=== PATIENT | male | born 1965 | race Caucasian/White ===

== ENCOUNTER 2019-10-01 14:03 | Outpatient (RCR) | payer SELFPAY ==
--- NOTE | 2019-09-10 10:09 | XR_ITS ---
WS: [id number] LEFT FOOT: 3 VIEW(S) TECHNIQUE: PA, oblique and lateral. HISTORY: DIABETIC WITH FOOT ULCER, LEFT FOOT PAIN COMPARISON: None available. No acute fracture or dislocation. Normal tarsal/metatarsal alignment. Large soft tissue ulceration lateral to the fifth metatarsal head measures 3.7 x 1.5 cm. No osteomyel itis is identified. Mild narrowing of the first metatarsophalangeal joint. Enthesopathy at the Achill es tendon. XR/XR foot LT min 3V* [id number] IMPRESSION: 1. Soft tissue ulcer lateral to the fifth metatarsal head measures 3.7 x 1.5 c m. 2. No osteomyelitis at this time.
== END 2019-10-01 23:59 | disposition home or self-care (01) ==
LOC: WOUND 14:03
PROVIDERS: Visit Provider Surgery
DX: E11.621 Type 2 diabetes mellitus with foot ulcer (principal); L97.522 Non-pressure chronic ulcer of other part of left foot with fat layer exposed; I96 Gangrene, not elsewhere classified; M79.672 Pain in left foot
CPT/HCPCS: 11042; 73630; G0463; L3260

== ENCOUNTER 2019-10-29 09:56 | Outpatient (RCR) | payer SELFPAY | END 2019-10-30 23:59 | disposition home or self-care (01) | LOC: WOUND 09:56 | PROVIDERS: Visit Provider Surgery | DX: E11.621 Type 2 diabetes mellitus with foot ulcer (principal); L97.522 Non-pressure chronic ulcer of other part of left foot with fat layer exposed | CPT/HCPCS: 11042 ==

== ENCOUNTER 2019-11-23 11:29 | Emergency (ER) | payer SELFPAY ==
[2019-11-23 11:33] VITALS: BP 153/83; PULSE 94; RESP 15; TEMP 36.9; O2SAT 97; BMI 39.5
--- NOTE | 2019-11-23 11:37 | XR_ITS ---
WS: [id number] Left foot, 3 views, today Clinical Data: PAIN Comparison: Left foot, 09/10/2019. Findings: There is soft tissue swelling over the head of the left fifth metatarsal basically unchanged. No bone erosion or destruction is seen. There is no periarticular demineralization. The bones of the phalang es appear to be normal. The tarsal bones and metatarsals are unremarkable. There is a large Achilles spur. XR/XR foot LT min 3V* [id number] Impression: 1. Soft tissue swelling lateral to the head of the left fifth metatarsal unchan ged. 2. No osteomyelitis seen.
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
[2019-11-23 12:02] VITALS: O2SAT 97
[2019-11-23 12:16] LABS: Basophils % 0.3 %; Eosinophils % 0.2 %; Hematocrit 40.4 % (42.0-52.0); Hemoglobin 14.1 g/dL (11.7-16.6); Lymphocytes # 1.9 10^3/uL (0.8-4.8); Lymphocytes % 12.7 %; Mean Corpuscular HGB Conc 34.9 g/dL (30.0-36.0); Mean Corpuscular Hemoglobin 29.9 pg (28.0-34.0); Mean Corpuscular Volume 85.6 fL (80-94); Mean Platelet Volume 9.9 fL (7.4-10.4); Monocytes # 1.2 10^3/uL (0.2-0.9); Monocytes % 7.9 %; Neutrophils # 11.7 10^3/uL (1.8-7.7); Neutrophils % 78.4 %; Nucleated Red Blood Cells % 0 %; Platelet Count 206 10^3/cmm (130-400); Red Blood Count 4.72 10^6/uL (4.1-5.3); Red Cell Distribution Width 13.1 % (12.1-15.1); White Blood Count 14.9 10^3/uL (4.0-10.0)
[2019-11-23 12:35] LABS: Alanine Aminotransferase 28 U/L (0-41); Alkaline Phosphatase 88 IU/L (40-130); Anion Gap 19.1 (5-19); Aspartate Amino Transferase 24 U/L (0-40); Blood Urea Nitrogen 11 mg/dL (6-20); Calcium 9.9 mg/dL (8.5-10.5); Carbon Dioxide 23 mmol/L (22-29); Chloride 96 mmol/L (98-107); Globulin 3.4 g/dL (1.3-4.6); Glomerular Filtration Rate 118.4 mL/min (90-130); Glucose 309 mg/dL (65-115); Osmolality Calculated 286 mOsm/kg (285-295); Potassium 4.1 mmol/L (3.5-5.1); Sodium 134 mmol/L (136-145); Total Bilirubin 1.3 mg/dL (0.15-1.2); Total Protein 7.4 g/dL (6.6-8.7)
[2019-11-23] MEDS: clindamycin 150 mg Capsule 300 MG PO (12:55)
[2019-11-23] MEDS: sulfamethoxazole-trimeth DS 160-800 mg Tablet 2 TAB PO (12:55)
[2019-11-23 12:59] VITALS: BP 148/90; PULSE 68; RESP 17; O2SAT 97
== END 2019-11-23 12:59 | disposition home or self-care (01) ==
LOC: ER 12:57
PROVIDERS: Emergency Provider Emergency Medicine
DX: E11.621 Type 2 diabetes mellitus with foot ulcer (principal); L97.529 Non-pressure chronic ulcer of other part of left foot with unspecified severity; Z87.891 Personal history of nicotine dependence
CPT/HCPCS: 11042; 12345; 36415; 73630; 80053; 85025; 87040; 99282; 99283

== ENCOUNTER 2019-11-26 13:44 | Outpatient (RCR) | payer SELFPAY | END 2019-11-30 23:59 | disposition home or self-care (01) | LOC: WOUND 13:44 | PROVIDERS: Visit Provider Surgery | DX: E11.621 Type 2 diabetes mellitus with foot ulcer (principal); L97.522 Non-pressure chronic ulcer of other part of left foot with fat layer exposed | CPT/HCPCS: 11042; L4387 ==

== ENCOUNTER 2019-12-24 14:24 | Outpatient (RCR) | payer SELFPAY | END 2019-12-30 23:59 | disposition home or self-care (01) | LOC: WOUND 14:24 | PROVIDERS: Visit Provider Surgery | DX: E11.621 Type 2 diabetes mellitus with foot ulcer (principal); L97.522 Non-pressure chronic ulcer of other part of left foot with fat layer exposed | CPT/HCPCS: 11042; L4387 ==

== ENCOUNTER 2019-12-31 14:42 | Outpatient (CLI) | payer SELFPAY | END 2019-12-31 14:43 | disposition home or self-care (01) | LOC: WOUND 01-03 13:40 | PROVIDERS: Visit Provider Surgery | DX: E11.621 Type 2 diabetes mellitus with foot ulcer (principal); L97.522 Non-pressure chronic ulcer of other part of left foot with fat layer exposed | CPT/HCPCS: 11042 ==

== ENCOUNTER 2020-01-07 14:56 | Outpatient (CLI) | payer SELFPAY | END 2020-01-07 14:57 | disposition home or self-care (01) | LOC: WOUND 14:57 | PROVIDERS: Visit Provider Surgery | DX: E11.621 Type 2 diabetes mellitus with foot ulcer (principal); L97.522 Non-pressure chronic ulcer of other part of left foot with fat layer exposed | CPT/HCPCS: 97597 ==

== ENCOUNTER 2020-01-14 14:07 | Outpatient (CLI) | payer SELFPAY | END 2020-01-14 14:08 | disposition home or self-care (01) | LOC: WOUND 14:07 | PROVIDERS: Visit Provider Surgery | DX: E11.621 Type 2 diabetes mellitus with foot ulcer (principal); L97.822 Non-pressure chronic ulcer of other part of left lower leg with fat layer exposed | CPT/HCPCS: 11042 ==

== ENCOUNTER 2020-01-21 15:25 | Outpatient (CLI) | payer SELFPAY | END 2020-01-21 15:26 | disposition home or self-care (01) | LOC: WOUND 15:26 | PROVIDERS: Visit Provider Surgery | DX: E11.621 Type 2 diabetes mellitus with foot ulcer (principal); L97.522 Non-pressure chronic ulcer of other part of left foot with fat layer exposed | CPT/HCPCS: 11042; L3260; L4387 ==

== ENCOUNTER 2020-01-28 13:24 | Outpatient (CLI) | payer SELFPAY | END 2020-01-28 13:25 | disposition home or self-care (01) | LOC: WOUND 13:25 | PROVIDERS: Visit Provider Surgery | DX: E11.621 Type 2 diabetes mellitus with foot ulcer (principal); L97.522 Non-pressure chronic ulcer of other part of left foot with fat layer exposed | CPT/HCPCS: 11042 ==

== ENCOUNTER 2020-02-03 14:44 | Outpatient (CLI) | payer SELFPAY | END 2020-02-03 14:45 | disposition home or self-care (01) | LOC: WOUND 14:45 | PROVIDERS: Visit Provider Nurse Practitioner Family | DX: E11.621 Type 2 diabetes mellitus with foot ulcer (principal); L97.522 Non-pressure chronic ulcer of other part of left foot with fat layer exposed | CPT/HCPCS: 11042 ==

== ENCOUNTER 2020-02-11 13:32 | Outpatient (CLI) | payer SELFPAY | END 2020-02-11 13:33 | disposition home or self-care (01) | LOC: WOUND 13:33 | PROVIDERS: Visit Provider Surgery | DX: E11.621 Type 2 diabetes mellitus with foot ulcer (principal); L97.522 Non-pressure chronic ulcer of other part of left foot with fat layer exposed | CPT/HCPCS: 11042 ==

== ENCOUNTER 2020-02-14 09:49 | Outpatient (CLI) | payer SELFPAY | END 2020-02-14 09:50 | disposition home or self-care (01) | LOC: WOUND 09:50 | PROVIDERS: Visit Provider Nurse Practitioner Family | DX: E11.621 Type 2 diabetes mellitus with foot ulcer (principal); L97.522 Non-pressure chronic ulcer of other part of left foot with fat layer exposed | CPT/HCPCS: 11042 ==

== ENCOUNTER 2020-02-18 13:50 | Outpatient (CLI) | payer SELFPAY | END 2020-02-18 13:51 | disposition home or self-care (01) | LOC: WOUND 13:52 | PROVIDERS: Visit Provider Surgery | DX: E11.621 Type 2 diabetes mellitus with foot ulcer (principal); L97.522 Non-pressure chronic ulcer of other part of left foot with fat layer exposed | CPT/HCPCS: 11042 ==

== ENCOUNTER 2020-02-21 09:05 | Outpatient (CLI) | payer SELFPAY | END 2020-02-21 09:06 | disposition home or self-care (01) | LOC: WOUND 09:07 | PROVIDERS: Visit Provider Nurse Practitioner Family | DX: E11.621 Type 2 diabetes mellitus with foot ulcer (principal); L97.522 Non-pressure chronic ulcer of other part of left foot with fat layer exposed; L97.512 Non-pressure chronic ulcer of other part of right foot with fat layer exposed | CPT/HCPCS: 11042 ==

== ENCOUNTER 2020-02-24 14:56 | Outpatient (CLI) | payer SELFPAY | END 2020-02-24 14:57 | disposition home or self-care (01) | LOC: WOUND 15:06 | PROVIDERS: Visit Provider Nurse Practitioner Family | DX: Z51.89 Encounter for other specified aftercare (principal) | CPT/HCPCS: G0463 ==

== ENCOUNTER 2020-03-20 13:28 | Outpatient (CLI) | payer SELFPAY | END 2020-03-20 13:29 | disposition home or self-care (01) | LOC: WOUND 13:29 | PROVIDERS: Visit Provider Nurse Practitioner Family | DX: E11.621 Type 2 diabetes mellitus with foot ulcer (principal); L97.512 Non-pressure chronic ulcer of other part of right foot with fat layer exposed | CPT/HCPCS: 11042 ==

== ENCOUNTER 2020-03-27 13:17 | Outpatient (CLI) | payer SELFPAY | END 2020-03-27 13:18 | disposition home or self-care (01) | LOC: WOUND 13:21 | PROVIDERS: Visit Provider Nurse Practitioner Family | DX: E11.621 Type 2 diabetes mellitus with foot ulcer (principal); L97.512 Non-pressure chronic ulcer of other part of right foot with fat layer exposed | CPT/HCPCS: 11042; L3260 ==

== ENCOUNTER 2020-04-17 13:04 | Outpatient (CLI) | payer SELFPAY | END 2020-04-17 13:05 | disposition home or self-care (01) | LOC: WOUND 13:04 | PROVIDERS: Visit Provider Emergency Medicine | DX: Z09 Encounter for follow-up examination after completed treatment for conditions other than malignant neoplasm (principal) | CPT/HCPCS: 99212 ==

== ENCOUNTER 2021-01-04 13:42 | Emergency (ER) | payer SELFPAY ==
[2021-01-04 13:48] VITALS: BP 179/78; PULSE 87; RESP 24; TEMP 36.7; O2SAT 98; BMI 38.2
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
--- NOTE | 2021-01-04 14:23 | XR_ITS ---
WS: [id number] Right ankle, 3 views, 01/04/2021 Clinical Data: injury/swelling Comparison: None. Findings: No fractures or dislocations are seen. The ankle mortise is normal. The talus and calcaneus are unrem arkable. There is soft tissue swelling over the lateral malleolus. XR/XR ankle RT min 3V* [id number] Impression: 1. Negative for right ankle fracture. 2. Soft tissue swelling over lateral malleolus.
--- NOTE | 2021-01-04 14:23 | XR_ITS ---
WS: [id number] Right foot, 3 views, 01/04/2021 Clinical Data: injury Comparison: None. Findings: No fractures or dislocations are seen. No bone destruction or erosion is noted. The joint spaces and soft tissues are normal. There is a plantar spur and an Achilles spur. XR/XR foot RT min 3V* [id number] Impression: Negative right foot.
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
[2021-01-04 15:06] LABS: Basophils % 0.4 %; Eosinophils # 0.1 10^3/uL (0.0-0.8); Eosinophils % 0.9 %; Hematocrit 38.1 % (42.0-52.0); Hemoglobin 13.1 g/dL (11.7-16.6); Lymphocytes # 1.4 10^3/uL (0.8-4.8); Lymphocytes % 17.9 %; Mean Corpuscular HGB Conc 34.4 g/dL (30.0-36.0); Mean Corpuscular Hemoglobin 30.8 pg (28.0-34.0); Mean Corpuscular Volume 89.4 fL (80-94); Mean Platelet Volume 10.7 fL (7.4-10.4); Monocytes # 0.5 10^3/uL (0.2-0.9); Monocytes % 6.4 %; Neutrophils # 5.86 10^3/uL (1.8-7.7); Neutrophils % 73.9 %; Nucleated Red Blood Cells % 0 %; Platelet Count 212 10^3/cmm (130-400); Red Blood Count 4.26 10^6/uL (4.1-5.3); Red Cell Distribution Width 12.7 % (12.1-15.1); White Blood Count 7.9 10^3/uL (4.0-10.0)
[2021-01-04] MEDS: iohexol 300 mg/mL 100 mL Btl IV (15:11)
[2021-01-04 16:01] VITALS: PULSE 88; RESP 18; O2SAT 97
== END 2021-01-04 16:02 | disposition home or self-care (01) ==
PROVIDERS: Emergency Provider Physician Assistant; PCP Nurse Practitioner Family
DX: S20.211A Contusion of right front wall of thorax, initial encounter (principal); S30.1XXA Contusion of abdominal wall, initial encounter; E11.9 Type 2 diabetes mellitus without complications; Z87.891 Personal history of nicotine dependence; V57.5XXA Driver of pick-up truck or van injured in collision with fixed or stationary object in traffic accident, initial encounter
CPT/HCPCS: 71260; 73610; 73630; 74177; 81000; 85025; 99283; Q9967

== ENCOUNTER 2021-03-09 13:10 | Emergency (ER) | payer SELFPAY ==
[2021-03-09 14:14] VITALS: BP 132/75; PULSE 88; RESP 18; TEMP 37.6; O2SAT 98; BMI 38.2
--- NOTE | 2021-03-09 14:29 | XRR_ITS ---
PROCEDURE INFORMATION: Exam: XR Chest Exam date and time: 03/09/2021 2:29 PM Age: 55 years old Clinical indication: Cough and shortness of breath; Prior surgery; Surgery type: Right lung; Additional info: Cough, covid exposure TECHNIQUE: Imaging protocol: XR of the chest. Views: 1 view. COMPARISON: CT chest abd pel w con* 01/04/2021 3:21 PM FINDINGS: Lungs: Unremarkable. No consolidation. Pleural spaces: Unremarkable. No pleural effusion. No pneumothorax. Heart/Mediastinum: Unremarkable. No cardiomegaly. Bones/joints: Unremarkable. XR/XR chest 1V portable [id number] IMPRESSION: No acute findings.
[2021-03-09 17:12] LABS: SARS Covid-2 Antigen Positive (Negative)
--- NOTE | 2021-03-09 17:20 | W.ED.COVID ---
HPI - COVID General: Chief Complaint: COVID symptoms Stated Complaint: SOB, NOT FEELING WELL X 6 DAYS, COVID EXPOSURE Time Seen by Provider: 03/09/21 17:19 Triage information: Has fever, cough or shortness of breath. Exposure to COVID + person last 14 days History of Present Illness: HPI Narrative: Patient comes in today for complaints of cough and shortness of breath for 6 days. Patient reports close exposure to COVID-19. Patient appears mildly unwell but not toxic. Patient appears no acute distress. MD complaint: reported COVID exposure COVID 19 common symptoms: positive fever(s), chills, cough and dyspnea Onset (ago): day(s) (6) Pertinent comorbid conditions: diabetes COVID Results: SARS-CoV-2 Antigen (Rapid) Positive (Negative) H 03/09/21 16:36 03/09/21 Review of Systems General: Reports: 10 or more systems reviewed and unremarkable except in HPI and below Const: Reports: fever(s) and chills Resp: Reports: dyspnea PFSH ED PFSH: Medical History Diabetes Hypothyroid Surgical History History of lung surgery History of tonsillectomy and adenoidectomy Family History Grandmother Diabetes Hypertension Social History Smoking and tobacco status: former smoker Alcohol intake: current Alcohol intake frequency: holidays/special occasions only Current occupational status: employed Current occupation: [employer] Physical Exam Const: COMMON NORMALS: no acute distress and patient oriented x3 GENERAL APPEARANCE: cooperative HENMT: COMMON NORMALS: normocephalic and Normal external nose present HEAD & SCALP: normal to inspection and normocephalic NOSE: Normal external nose present MOUTH: Normal oral and palatal mucosa present Eye: GENERAL EYE: appearance normal, both eyes and all related structures Neck/C-Spine: COMMON NORMALS: full ROM Lymph: LYMPHATIC: no lymphadenopathy noted Chest: COMMONS NORMALS: normal inspection of the chest Resp: COMMON NORMALS: normal respiratory effort EFFORT & INSPECTION: Yes able to speak in complete sentences Cardio: COMMON NORMALS: regular rate and regular rhythm RATE: regular rate RHYTHM: regular rhythm GI: COMMON NORMALS: non-tender Back/Pelvis: COMMON NORMALS: thoracic and lumbar spine normal to inspection Extremity: COMMON NORMALS: normal to inspection Neuro: COMMON NORMALS: patient oriented x3 and moves all extremities Psych: COMMON NORMALS: mental status grossly normal and cooperative Skin: COMMON NORMALS: no rashes or lesions noted GENERAL SKIN EXAM: no rashes or lesions noted Course Vital Signs: Vital signs: Vital Signs Temperature 99.7 F H 03/09/21 14:14 Pulse Rate 88 03/09/21 14:14 Respiratory Rate 18 03/09/21 14:14 Blood Pressure 132/75 03/09/21 14:14 Pulse Oximetry 98 03/09/21 14:14 MDM - COVID MDM Narrative: Medical decision making narrative: Patient comes in today with complaints of COVID-19 exposure and feeling of malaise. Patient has been sick for about 6 days. On exam patient is alert and oriented. Patient has good air movement throughout lung mead. Vital signs are normal except for elevated temperature. Oral mucosa is moist. Abdomen soft nontender. No edema is noted in the extremities. Differential diagnosis includes COVID-19, viral syndrome, pneumonia. COVID-19 test was positive. Chest x-ray indicated no pneumonia at this time. Encourage patient drink plenty of fluids. Patient was given 8 mg of p.o. dexamethasone x1 to help with body aches and discomfort. Patient was can given albuterol inhaler to help with shortness of breath sensation. Discussed with patient the need to drink plenty of fluids and to use acetaminophen and ibuprofen as needed for aches and pains. Patient reported understanding of care plan and need for follow-up or return. Lab Data: Labs: Lab Results 03/09/21 Range/Units 16:36 SARS-CoV-2 Ag (Rap id) Positive H (Negative) COVID Results: SARS-CoV-2 Antigen (Rapid) Positive (Negative) H 03/09/21 16:36 03/09/21 Discharge Plan Discharge Patient Disposition: Home Clinical Impression: COVID-19 Condition: Stable Prescriptions: No Action metformin 1,000 mg tablet 1,000 mg PO BID RF: 0 Apple Cider Vinegar Plus [phone] of-jnx-sg-mg Tablet 1 tab PO DAILY RF: 0 Vitamin B-12 1 tab PO DAILY RF: 0 Vitamin C 1 tab PO DAILY RF: 0 Vitamin D3 1 tab PO DAILY RF: 0 zinc 1 tab PO DAILY RF: 0 Discharge Orders: Discharge ED (Routine); Ordered 03/09/21 Ordered By: Saw Moy Referrals: DOMENIC Lopez, TIN TIE MACHINE OPERATOR AUTOMATIC [Primary Care Provider] - Discharge Diet: Usual diet Discharge Activity: Increase activity as tolerated Patient Instructions: Viral Syndrome (ED), Opioid Safety Activity Restrictions/Additional Instructions: Drink plenty of water, Check pulse ox 4 times a day. Use acetaminophen and ibuprofen for pain and discomfort. Continue with albuterol inhaler 2 puffs every 4 hours as needed for shortness of breath, cough, or wheezing. Healthy diet and activity. Continue to isolate self for at least 10 days from other individuals or until you are better. Wear a mask when around other people. Follow-up with primary care as needed. Return to ER for worsening symptoms, Pulse ox reading less than 90 percent consecutively, or chest pain. Coding Level of Care Code ED Injection Wax Molder for Carlton Fwd Exam Comprehensive
[2021-03-09 17:58] VITALS: PULSE 74; RESP 18; O2SAT 94
[2021-03-09] MEDS: albuterol 8 gm MDI 2 PUFF INHALATION (17:58)
[2021-03-09 18:19] VITALS: BP 139/89; PULSE 81; TEMP 37.9; O2SAT 92
[2021-03-09 18:30] VITALS: O2SAT 92
== END 2021-03-09 18:34 | disposition home or self-care (01) ==
PROVIDERS: Physician Assistant; Emergency Provider Nurse Practitioner Family; PCP Nurse Practitioner Family
DX: U07.1 COVID-19 (principal); E11.9 Type 2 diabetes mellitus without complications; Z79.01 Long term (current) use of anticoagulants; Z87.891 Personal history of nicotine dependence
CPT/HCPCS: 71045; 87426; 94640; 99283; J3535

== ENCOUNTER 2021-06-04 15:16 | Outpatient (CLI) | payer SELFPAY ==
--- NOTE | 2021-06-04 15:24 | XR_ITS ---
WS: [id number] Chest 2 views, 06/04/2021 Clinical Data: R10.9 - Unspecified abdominal pain Comparison: Portable chest, 03/09/2021. Findings: No nodules, masses or effusions are seen. The heart is normal. The pulmonary vascularity is not increased. No pneumonia or pneumothorax is seen. There is probable atelectasis adjacent to the l eft cardiac border. There is blunting of the right costophrenic angle. XR/XR chest 2V* [id number] Impression: Probable atelectasis adjacent to left cardiac border.
--- NOTE | 2021-06-04 15:24 | XR_ITS ---
WS: [id number] KUB, AP view, 06/04/2021 Clinical Data: R10.9 - Unspecified abdominal pain Comparison: None. Findings: No abnormal intraabdominal masses or calcifications are seen. There is no dilatated small bowel or ev idence of obstruction. There is a large amount of fecal material throughout the colon. Bladder is partly full. XR/XR KUB [id number] Impression: Large amount of fecal material throughout the colon.
[2021-06-04 16:00] LABS: Basophils # 0.1 10^3/uL (0.0-0.1); Basophils % 0.5 %; Eosinophils # 0.3 10^3/uL (0.0-0.8); Eosinophils % 2.7 %; Hematocrit 41.4 % (42.0-52.0); Hemoglobin 14.3 g/dL (11.7-16.6); Lymphocytes # 2.3 10^3/uL (0.8-4.8); Lymphocytes % 20.9 %; Mean Corpuscular HGB Conc 34.5 g/dL (30.0-36.0); Monocytes # 0.7 10^3/uL (0.2-0.9); Monocytes % 6.4 %; Nucleated Red Blood Cells % 0 %; Platelet Count 246 10^3/cmm (130-400); Red Blood Count 4.93 10^6/uL (4.1-5.3); Red Cell Distribution Width 13.4 % (12.1-15.1); White Blood Count 10.9 10^3/uL (4.0-10.0)
[2021-06-04 16:21] LABS: Estmated Average Glucose 200; Hemoglobin A1C 8.6 % (4.0-6.0)
[2021-06-04 16:49] LABS: 25 Hydroxy Vitamin D 26 ng/mL (30-100); Alanine Aminotransferase 26 U/L (0-41); Albumin Level 4.2 g/dL (3.5-5.2); Alkaline Phosphatase 112 IU/L (40-130); Amylase 34 U/L (28-100); Aspartate Amino Transferase 20 U/L (0-40); Blood Urea Nitrogen 13 mg/dL (6-20); Calcium 9.1 mg/dL (8.5-10.5); Carbon Dioxide 26 mmol/L (22-29); Chloride 98 mmol/L (98-107); Chol HDL Ratio 2.26 mg/dL (1.0-5.00); Cholesterol 79 mg/dL (0-200); Globulin 3.2 g/dL (1.3-4.6); Glomerular Filtration Rate 140.4 mL/min (90-130); Glucose 362 mg/dL (65-115); HDL Cholesterol 35 mg/dL (60-100); LDL Cholesterol Calculated 17 mg/dL (50-129); LDL HDL Ratio 0.49 RATIO (0.00-3.22); Lipase 52 U/L (13-60); Osmolality Calculated 295 mOsm/kg (285-295); Sodium 135 mmol/L (136-145); Thyroid Stimulating Hormone 2.12 uIU/mL (0.27-4.20); Total Bilirubin 0.7 mg/dL (0.15-1.2); Total Protein 7.4 g/dL (6.6-8.7); Triglycerides 133 mg/dL (0-150)
[2021-06-04 16:51] LABS: Anion Gap 15.4 (5-19); Potassium 4.4 mmol/L (3.5-5.1)
[2021-06-04 17:57] LABS: Blood Urine Neg (Negative); Glucose Urine UA 4+ (Normal); Ketones Urine Negative (Negative); Nitrate Urine Negative (Negative); Protein Urine Neg (Negative); Specific Gravity, Urine 1.015 (1.005-1.030); Urine Appearance Clear (CLEAR); Urine Color Straw (Yellow); pH Urine 5 (5-7)
[2021-06-04 17:58] LABS: Add Urine Culture? No; Bacteria Urine TRACE /hpf; Bilirubin Urine Neg (Negative); Leukocyte Esterase Urine Negative (Negative); Urobilinogen Urine Norm (Negative); WBC Urine RARE /hpf (0-5)
== END 2021-06-04 15:17 | disposition home or self-care (01) ==
LOC: RAD 15:22
PROVIDERS: PCP Nurse Practitioner Family; Visit Provider Nurse Practitioner Family
DX: R10.9 Unspecified abdominal pain (principal); Z13.6 Encounter for screening for cardiovascular disorders; E11.9 Type 2 diabetes mellitus without complications; E55.9 Vitamin D deficiency, unspecified; I10 Essential (primary) hypertension
CPT/HCPCS: 36415; 71046; 74018; 80053; 80061; 81001; 82150; 82306; 83036; 83690; 84443; 85025

== ENCOUNTER → 2022-12-24 16:43 | Outpatient (BNVA) | payer SELFPAY | PROVIDERS: PCP Family Medicine; Visit Provider Family Medicine | DX: I10 Essential (primary) hypertension (principal); R06.02 Shortness of breath | CPT/HCPCS: 71046; 80053; 80061; 80074; 80307; 82247; 82248; 82728; 84443; 85025 ==

== ENCOUNTER → 2022-12-25 07:59 | Outpatient (BNVA) | payer SELFPAY | PROVIDERS: PCP Family Medicine; Visit Provider Family Medicine | DX: R06.02 Shortness of breath (principal); U09.9 Post COVID-19 condition, unspecified | CPT/HCPCS: 80307 ==

== ENCOUNTER 2022-12-26 17:13 | Emergency (ER) | payer SELFPAY ==
[2022-12-26] VITALS (8 sets, daily range): BP systolic 135–159; BP diastolic 70–95; PULSE 74–85; RESP 14–18; TEMP 36.5; O2SAT 90–100; BMI 34.2
--- NOTE | 2022-12-26 17:44 | ECG_ITS ---
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 Measurements Intervals [place] Rate: 83 P: -21 NE: 149 QRS: -27 QRSD: 101 T: 148 QT: 356 QTc: 419 Interpretive Statements SINUS RHYTHM BORDERLINE LEFT AXIS DEVIATION [QRS AXIS < -20] NONSPECIFIC T-WAVE ABNORMALITY No previous ECG available for comparison Electronically Signed On 12-28-2022 16:29:41 CDT by Chandni Walton M.D. [email or web address]
--- NOTE | 2022-12-26 18:01 | XRR_ITS ---
PROCEDURE INFORMATION: Exam: XR Chest Exam date and time: 12/26/2022 6:20 PM Age: 57 years old Clinical indication: Patient HX: Dyspnea; Mid epigastric pain TECHNIQUE: Imaging protocol: Radiologic exam of the chest. Views: 2 views. COMPARISON: CR XR chest 2V* [id number] 12/24/2022 5:43 PM FINDINGS: Lungs: Lungs are clear. Pleural spaces: Unremarkable. No pleural effusion. No pneumothorax. Chronic scarring seen at right lung base. Heart/Mediastinum: Heart is within normal limits of size. Bones/joints: There are degenerative changes in the thoracic spine. XR/XR chest 2V* [id number] IMPRESSION: No acute findings. No significant change compared with 12/24/2022.
[2022-12-26 18:27] LABS: Basophils % 0.4 %; Eosinophils # 0.1 10^3/uL (0.0-0.8); Eosinophils % 0.8 %; Hematocrit 39.2 % (42.0-52.0); Hemoglobin 13.5 g/dL (11.7-16.6); Lymphocytes # 1.8 10^3/uL (0.8-4.8); Lymphocytes % 23.6 %; Mean Corpuscular HGB Conc 34.4 g/dL (30.0-36.0); Mean Corpuscular Hemoglobin 30.1 pg (28.0-34.0); Mean Corpuscular Volume 87.3 fl (80-94); Mean Platelet Volume 9.8 fL (7.4-10.4); Monocytes # 0.4 10^3/uL (0.2-0.9); Monocytes % 5.2 %; Neutrophils # 5.19 10^3/uL (1.8-7.7); Neutrophils % 69.5 %; Nucleated Red Blood Cells % 0 %; Platelet Count 194 10^3/cmm (130-400); Red Blood Count 4.49 10^6/uL (4.1-5.3); Red Cell Distribution Width 12.4 % (12.1-15.1); White Blood Count 7.5 10^3/uL (4.0-10.0)
[2022-12-26 18:45] LABS: Alanine Aminotransferase 168 U/L (0-41); Albumin Level 3.5 g/dL (3.5-5.2); Alkaline Phosphatase 333 U/L (40-130); Anion Gap 13.4 (5-19); Aspartate Amino Transferase 31 U/L (0-40); Blood Urea Nitrogen 18 mg/dL (6-20); Calcium 8.3 mg/dL (8.5-10.5); Carbon Dioxide 28 mmol/L (22-29); Chloride 94 mmol/L (98-107); Globulin 2.9 g/dL (1.3-4.6); Glomerular Filtration Rate 139.9 mL/min (90-130); Lipase 178 U/L (13-60); Osmolality Calculated 307 mOsm/kg (285-295); Potassium 4.4 mmol/L (3.5-5.1); Sodium 131 mmol/L (136-145); Total Protein 6.4 g/dL (6.6-8.7)
[2022-12-26 18:48] LABS: Glucose 687 mg/dL (65-115)
[2022-12-26 19:34] LABS: Add Urine Microscopic? NO; Charge for UA Resulting for Rev
--- NOTE | 2022-12-26 19:34 | ED_ITS ---
HPI - SOB/Dyspnea General: Chief Complaint: Shortness of Breath/Dyspnea Stated Complaint: pcp sent for sob Time Seen by Provider: 12/26/22 19:03 Source: patient and family Mode of arrival: ambulatory Limitations: no limitations History of Present Illness: HPI Narrative: This patient made his way to the emergency department because his doctor called him and told him his liver tests were elevated. The patient relates that he is been having some abdominal distention over the past few weeks and that has improved since he used [id number] laxatives in combination with MiraLAX. He is also been having some shortness of breath which is unpredictable in nature. He does have a history of anxiety and is uncertain whether that is a factor in his subjective shortness of breath. He has had a nonproductive cough on occasion but denies any fevers but states he may have had chills at times but he relates that environmental factors rather than being sick. He has a history of having type 2 diabetes and previously took metformin and then has not taken it for a while and now is started back over the past week or so. He has not had any abdominal surgeries, does not use alcohol, has not had any blood in his stools but has had light-colored stools. He does not have any history of hypertension or cardiovascular disease that he is aware. Associated symptoms: Reports abdominal pain, polydipsia and polyuria; Deny chest pain, dizziness, extremity pain, fever(s) or palpitations Review of Systems Const: Denies: fever(s), body aches or change in appetite Eyes: Denies: change in vision ENMT: Denies: throat pain, odynophagia, nasal discharge or nasal congestion Card: Denies: chest pain, palpitations, irregular heart rhythm or edema Resp: Reports: dyspnea and non-productive cough; Denies: productive cough, wheezing or stridor GI: Reports: abdominal pain and constipation; Denies: hematemesis, hematochezia or melena : Reports: urinary frequency; Denies: flank pain, difficulty urinating or dysuria Musc: Denies: neck pain, back pain, extremity pain or extremity swelling Skin/Breast: Denies: rash Neuro: Denies: headache(s), numbness in extremities, weakness in extremities, dizziness or vertigo Psych: Reports: anxiety Endo: Reports: polyuria and polydipsia Librado/Lymph: Denies: easy bruising or easy bleeding PFSH ED PFSH: Medical History Abdominal pain Cough Diabetes Essential hypertension Hypertension screen Hypothyroid Post covid-19 condition, unspecified Shortness of breath Vitamin D deficiency Surgical History History of lung surgery History of tonsillectomy and adenoidectomy Family History Grandmother Diabetes Hypertension Social History Smoking and tobacco status: never smoked Alcohol intake: current Alcohol intake frequency: holidays/special occasions only Substance/Drug Use: never Current occupational status: employed Current occupation: [employer] Physical Exam Narrative: EXAM NARRATIVE: Patient appears to be in no acute distress. He is appears to be slightly anxious and has slightly pressured speech but eventually makes his point and is generally goal-directed. Const: COMMON NORMALS: no acute distress, patient oriented x3 and alert GEN ERAL APPEARANCE: cooperative NUTRITIONAL APPEARANCE: overweight HENMT: COMMON NORMALS: normocephalic, atraumatic, Normal nasal mucous membranes and turbinates present and moist oral mucous membranes HEAD & SCALP: normocephalic and atraumatic NOSE: Normal nasal mucous membranes and turbinates present TEETH & GINGIVA: Yes poor dentition Eye: COMMON NORMALS: Equal, round and reactive pupils present, EOMs intact bilaterally and conjunctivae normal CONJUNCTIVA: Yes conjunctivae normal PUPIL: Yes Equal, round and reactive pupils present Neck/C-Spine: COMMON NORMALS: full ROM, no JVD and No carotid bruits Chest: COMMONS NORMALS: normal inspection of the chest and normal palpation of entire chest wall Resp: COMMON NORMALS: normal respiratory effort, No retractions, No use of accessory muscles and clear to auscultation bilaterally EFFORT & INSPECTION: Yes able to speak in complete sentences AUSCULTATION: clear to auscultation bilaterally Cardio: COMMON NORMALS: no JVD, regular rate, regular rhythm, No murmurs present (Cardio) and Peripheral pulses 2+ throughout RATE: regular rate RHYTHM: regular rhythm PERIPHERAL PULSES: Peripheral pulses 2+ throughout GI: COMMON NORMALS: Normal to inspection, nondistended, normoactive bowel sounds present PALPATION: Yes Tenderness to palpation present (GI) (Mildly tender right upper quadrant and epigastric region. No rebound, no g) : COMMON NORMALS: Yes no CVA tenderness BLADDER/KIDNEY EXAM: Yes no CVA tenderness Back/Pelvis: COMMON NORMALS: no CVA tenderness, thoracic and lumbar spine normal to inspection and no thoracic nor lumbar tenderness Extremity: COMMON NORMALS: normal to inspection, full ROM and no calf tenderness Neuro: COMMON NORMALS: patient oriented x3, moves all extremities, no focal motor deficits and no sensory deficits noted SENSORIUM/ORIENTATION: Yes alert Psych: COMMON NORMALS: mental status grossly normal SPEECH: Yes rapid MOOD & AFFECT: Yes anxious Skin: COMMON NORMALS: no rashes or lesions noted, no wounds, turgor normal and no jaundice GENERAL SKIN EXAM: no rashes or lesions noted and turgor normal Course Reevaluation(s): Reevaluation #1: Patient remains clinically stable. We have discussed with the hospitalist and we have additional testing pending prior to final disposition. I have discussed with Dr. Kramer overnight ER doctor who will make disposition based upon gallbladder ultrasound whether the patient can be at safely kept here or will need transfer to another facility who can perform ERCP. Time: 23:15 Consultations: Consultation #1: Discussed with Dr. Lozano. Will await gallbladder ultrasound to make final disposition. If patient has no evidence of biliary tract obstruction he may be appropriate for treatment at this facility however if he does display common bile duct stone etc. he will need to be transferred to an ER CP capable facility. Time: 23:05 Vital Signs: Vital signs: Vital Signs Temperature 97.7 F 12/26/22 17:36 Pulse Rate 75 12/26/22 22:45 Respiratory Rate 14 12/26/22 22:45 Blood Pressure 135/90 12/26/22 22:45 Pulse Oximetry 91 12/26/22 22:45 Oxygen Delivery Me thod Room Air 12/26/22 22:45 MDM - SOB/Dyspnea Medical Decision Making This patient has a history of diabetes with poor adherence to prior medication regimens. He has intermittently taken metformin in the past. He is also had subjective feelings of abdominal fullness which he translates into making him feel like he is short of breath at times and cannot take a deep breath but he does have also an underlying anxiety disorder. States that he subsequently prior to arrival has been doing a bowel cleansing prep with multiple laxatives and MiraLAX and has had large stools which has improved his abdominal distention and sensation of feeling short winded at times. His clinical examination revealed a gentleman who appears to be somewhat anxious with some mild abdominal tenderness but no focal findings or peritoneal irritation suggestive of a surgical abdomen. No other clinical concerns were noted on initial intake examination. Work-up was undertaken which confirmed hyperglycemia also elevation in transaminases, alk phos and lipase. Additional imaging was obtained which suggestive of pancreatitis with gallstones suggest which makes it likely etiology gallstone pancreatitis. He did have a slight elevation in troponin but had no worrisome EKG findings suggestive of ischemia. The patient will be admitted to medicine service for treatment and additional evaluation as indicated. Medical Records I reviewed the patient's medical records. Lab Data I reviewed the patient's lab results. 12/26/22 18:18 12/26/22 18:18 Labs/Radiology: Radiology Impressions Chest X-Ray 12/26/22 18:01 IMPRESSION: No acute findings. No significant change compared with 12/24/2022. Abdomen/Pelvis CT 12/26/22 19:35 IMPRESSION: 1. Cholelithiasis 2. Distended gallbladder 3. Hepatosplenomegaly 4. Findings worrisome for acute pancreatitis 5. Distended urinary bladder. Laboratory Results WBC 7.5 10^3/uL (4.0-10.0) 12/26/22 18:18 RBC 4.49 10^6/uL (4.1-5.3) 12/26/22 18:18 Hgb 13.5 g/dL (11.7-16.6) 12/26/22 18:18 Hct 39.2 % (42.0-52.0) L 12/26/22 18:18 MCV 87.3 fl (80-94) 12/26/22 18:18 MCH 30.1 pg (28.0-34.0) 12/26/22 18:18 MCHC 34.4 g/dL (30.0-36.0) 12/26/22 18:18 RDW 12.4 % (12.1-15.1) 12/26/22 18:18 Plt Count 194 10^3/cmm (130-400) 12/26/22 18:18 MPV 9.8 fL (7.4-10.4) 12/26/22 18:18 Neut % (Auto) 69.5 % 12/26/22 18:18 Lymph % (Auto) 23.6 % 12/26/22 18:18 [place] % (Auto) 5.2 % 12/26/22 18:18 Eos % (Auto) 0.8 % 12/26/22 18:18 Baso % (Auto) 0.4 % 12/26/22 18:18 Neut # (Auto) 5.19 10^3/uL (1.8-7.7) 12/26/22 18:18 Lymph # (Auto) 1.8 10^3/uL (0.8-4.8) 12/26/22 18:18 [place] # (Auto) 0.4 10^3/uL (0.2-0.9) 12/26/22 18:18 Eos # (Auto) 0.1 10^3/uL (0.0-0.8) 12/26/22 18:18 Baso # (Auto) 0.0 10^3/uL (0.0-0.1) 12/26/22 18:18 Nucleated RBC % (auto) 0 % 12/26/22 18:18 Nucleated RBCs # 0.0 /100WBC 12/26/22 18:18 Sodium 131 mmol/L (136-145) L 12/26/22 18:18 Potassium 4.4 mmol/L (3.5-5.1) 12/26/22 18:18 Chloride 94 mmol/L (98-107) L 12/26/22 18:18 Carbon Dioxide 28 mmol/L (22-29) 12/26/22 18:18 Anion Gap 13.4 (5-19) 12/26/22 18:18 BUN 18 mg/dL (6-20) 12/26/22 18:18 Creatinine 0.6 mg/dL (0.7-1.2) L 12/26/22 18:18 GFR Calculation 139.9 mL/min (90-130) H 12/26/22 18:18 Glucose 687 mg/dL (65-115) H* 12/26/22 18:18 Calculated Osmolality 307 mOsm/kg (285-295) H 12/26/22 18:18 Calcium 8.3 mg/dL (8.5-10.5) L 12/26/22 18:18 Total Bilirubin 1.0 mg/dL (0.15-1.2) 12/26/22 18:18 AST 31 U/L (0-40) 12/26/22 18:18 ALT 168 U/L (0-41) H 12/26/22 18:18 Alkaline Phosphatase 333 U/L (40-130) H 12/26/22 18:18 Troponin T Gen 5 ng/L 26 ng/L (0-15) H 12/26/22 18:18 NT-Pro-B Natriuret Pep 98 pg/mL (0-125) 12/26/22 18:18 Total Protein 6.4 g/dL (6.6-8.7) L 12/26/22 18:18 Albumin 3.5 g/dL (3.5-5.2) 12/26/22 18:18 Globulin 2.9 g/dL (1.3-4.6) 12/26/22 18:18 Triglycerides 374 mg/dL (0-150) H 12/26/22 18:18 Lipase 178 U/L (13-60) H 12/26/22 18:18 Urine Color Yellow (Yellow) 12/26/22 19:06 Urine Appearance Clear (CLEAR) 12/26/22 19:06 Urine pH 7 (5-7) 12/26/22 19:06 Ur Specific [place] 1.010 (1.005-1.030) 12/26/22 19:06 Urine Protein Neg (Negative) 12/26/22 19:06 Urine Glucose (UA) 4+ (Normal) H 12/26/22 19:06 Urine Ketones Negative (Negative) 12/26/22 19:06 Urine Blood Neg (Negative) 12/26/22 19:06 Urine Nitrate Negative (Negative) 12/26/22 19:06 Urine Bilirubin Neg (Negative) 12/26/22 19:06 Urine Urobilinogen Neg mg/dL (Negative) 12/26/22 19:06 Ur Leukocyte Esterase Negative (Negative) 12/26/22 19:06 EKG Data EKG 1: I personally reviewed and interpreted this EKG as follows: Interpretation: Contemporaneous review of EKG reveals normal sinus rhythm at 83 bpm. Normal axis, normal intervals, some nonspecific ST-T wave changes noted in limb lead I but no other changes of concern or representing ischemia at this time. Discharge Plan Discharge Clinical Impression: Type 2 diabetes mellitus Condition: Stable Prescriptions: No Action fluticasone propion-salmeterol [Advair Diskus] 250-50 mcg/dose blister with device 1 inh inhalation BID Qty: 60 3RF metformin 1,000 mg tablet 1,000 mg PO BID 90 Days Qty: 180 1RF tramadol 50 mg tablet 50 mg PO BID PRN (Reason: pain) 7 Days Qty: 14 0RF (DME) glucometer testing kit See Rx Instructions .Route .MEDSUPPLY Qty: 1 0RF Rx Instructions: glucometer testing kit lancets #100 strips #100 glimepiride 2 mg tablet 2 mg PO DAILY 90 Days Qty: 90 1RF Hold Instructions: Home Medication placed on hold at Doctor's office albuterol sulfate 90 mcg/actuation HFA aerosol inhaler 1 inh inhalation QID PRN (Reason: shortness of breath or wheezing) Qty: 8.5 0RF doxycycline hyclate 100 mg capsule 100 mg PO BID 5 Days Qty: 10 0RF Vitamin B-12 1 tab PO DAILY Vitamin C 1 tab PO DAILY Vitamin D3 1 tab PO DAILY zinc 1 tab PO DAILY Referrals: Michele Briceño MD [Primary Care Provider] - Coding Level of Care Code ED Sub Master for Carlton Batres
--- NOTE | 2022-12-26 19:35 | CTR_ITS ---
PROCEDURE INFORMATION: Exam: CT Abdomen And Pelvis With Contrast Exam date and time: 12/26/2022 8:43 PM Age: 57 years old Clinical indication: Abdominal pain; Generalized; Additional info: Abd pain and distention TECHNIQUE: Imaging protocol: Computed tomography of the abdomen and pelvis with contrast. Radiation optimization: All CT scans at this facility use at least one of these dose optimization techniques: automated exposure control; mA and/or kV adjustment per patient size (includes targeted exams where dose is matched to clinical indication); or iterative reconstruction. Contrast material: OMNI 350; Contrast volume: 100 ml; Contrast route: INTRAVENOUS (IV); REPORTING DATA: Count of CT and Cardiac NM exams in prior 12 months: This patient has received 0 known CTs and 0 known cardiac nuclear medicine studies in the 12 months prior to the current study. COMPARISON: CT chest abdpel w/*[id number] 01/04/2021 3:21 PM RADIATION DOSE METRICS: Total DLP (mGy-cm): 1211.5 FINDINGS: Mediastinal space: There is mild thickening of the distal esophagus which could represent some esophagitis. Liver: There is moderate enlargement of the liver. Liver measures 22 cm in height, slightly larger than on 01/04/2021. There is no focal abnormality within the liver. Gallbladder and bile ducts: Multiple calcified gallstones are present. There is moderate hydrops of the gallbladder. Gallbladder measures 5.8 cm in diameter and just over 10 cm in length. There is no gallbladder wall thickening or pericholecystic fluid. Pancreas: There is some mild haziness around the head and uncinate process of the pancreas which is concerning for mild acute pancreatitis. Please correlate with appropriate clinical and laboratory values. There is no pancreatic duct dilatation. Spleen: There is moderate nonspecific splenomegaly. Spleen measures 16 cm compared with 15 on 01/04/2021. Adrenal glands: The adrenal glands are normal. Kidneys and ureters: 18 mm benign-appearing simple cyst anterior cortex mid left kidney slightly larger than on 01/04/2021. Extrarenal pelvis noted on both sides not significantly changed. There is no evidence of hydronephrosis. There is no evidence of renal or ureteral calcifications. Stomach and bowel: There is no evidence of colitis/diverticulitis. Appendix: A normal appendix is identified. Intraperitoneal space: Unremarkable. No free air. No significant fluid collection. Vasculature: The aorta is normal. Lymph nodes: There are calcified hilar and mediastinal lymph nodes in keeping with old granulomatous disease. There is no evidence of lymphadenopathy. Urinary bladder: Urinary bladder is markedly distended with a volume of 1400 cc. Reproductive: Unremarkable as visualized. Bones/joints: Unremarkable. No acute fracture. Soft tissues: Unremarkable. CT/CT abdomen pelvis w con* [id number] IMPRESSION: 1. Cholelithiasis 2. Distended gallbladder 3. Hepatosplenomegaly 4. Findings worrisome for acute pancreatitis 5. Distended urinary bladder.
[2022-12-26 19:36] LABS: Bilirubin Urine Neg (Negative); Blood Urine Neg (Negative); Glucose Urine UA 4+ (Normal); Ketones Urine Negative (Negative); Leukocyte Esterase Urine Negative (Negative); Nitrate Urine Negative (Negative); Protein Urine Neg (Negative); Urine Appearance Clear (CLEAR); Urine Color Yellow (Yellow); Urobilinogen Urine Neg (Negative); pH Urine 7 (5-7)
[2022-12-26] MEDS: sodium chloride 0.9% 1,000 ML 999 ML IV (19:45)
[2022-12-26] MEDS: LORazepam 2 mg/mL INJ 1 mL 1 MG IVP (19:45)
[2022-12-26 20:20] LABS: Troponin T (5th) Once 26 ng/L (0-15)
[2022-12-26 20:27] LABS: NT Pro B Type Natriuretic Pept 98 pg/mL (0-125)
[2022-12-26] MEDS: iohexol 350 mg/mL 500 mL Btl (per mL) IV (20:40)
--- NOTE | 2022-12-26 22:23 | USR_ITS ---
PROCEDURE INFORMATION: Exam: US Abdomen Complete Exam date and time: 12/26/2022 10:37 PM Age: 57 years old Clinical indication: Other: F/u CT = hepatomegaly, splenomegaly, gallstones; Patient HX: Patients pcp advised he go to er for elevated lfts; Additional info: Gall stones with pancreatitis TECHNIQUE: Imaging protocol: Real-time ultrasound of the abdomen with image documentation. Complete exam. COMPARISON: CT abdomen pelvis w con* [id number] 12/26/2022 8:43 PM FINDINGS: Liver: There is mild hepatomegaly. Liver measures 19.5 cm in length. No focal abnormality is seen within the liver. Gallbladder: There is distended gallbladder measuring 9.5 cm in length and over 5 cm in diameter. There is some small stone seen within the gallbladder. There is no gallbladder wall thickening. Gallbladder wall measures 2 mm. Biliary ducts: Common bile duct measures 5 mm. Pancreas: Visualized portions of the pancreas are unremarkable. Pancreatic tail is obscured by intestinal gas. Right kidney: There is enlarged extrarenal pelvis on the right and mild hydronephrosis. Findings could represent UPJ stenosis. No focal abnormality is seen in the right kidney. Right kidney measures 14.5 x 5.7 x 5.3 cm. No stone is identified. Left kidney: Left kidney demonstrates dilated extrarenal pelvis and moderate hydronephrosis. Findings could represent UPJ stenosis. No stone is identified. No focal abnormality is seen within the kidney. Left kidney measures 15.3 x 6.5 x 5.7 cm. Spleen: There is mild splenomegaly. Spleen measures 6 x 15 cm. Aorta: Abdominal aorta has a normal diameter without evidence of aneurysm. Inferior vena cava: IVC is normal size and patent. Portal venous: Flow in the portal vein is in the normal direction. US/US abdomen complete* [id number] IMPRESSION: 1. Cholelithiasis 2. Distended gallbladder 3. Prominent extrarenal pelvises on both sides with mild right and moderate left hydronephrosis. Findings could represent UPJ stenosis. 4. Hepatomegaly and splenomegaly.
[2022-12-26] MEDS: lactated ringers 1,000 ML 150 ML IV (22:59)
[2022-12-26 23:04] LABS: Triglycerides 374 mg/dL (0-150)
--- NOTE | 2022-12-26 23:57 | ECG_ITS ---
[facility] Test Date: 2022-12-26 Pat Name: Mika Mendoza Department: Room: Gender: Male Oak Tanner: : [id number] Requested By: Jake Celis Order Number: [id number] Chapman MD: Chandni Walton M.D. Measurements Intervals [place] Rate: 75 P: 23 CA: 165 QRS: -2 QRSD: 101 T: 48 QT: 375 QTc: 419 Interpretive Statements SINUS RHYTHM Compared to ECG 12/26/2022 17:44:25 T-wave abnormality no longer present Electronically Signed On 12-28-2022 16:48:11 CDT by Chandni Walton M.D. [email or web address]
[2022-12-27] VITALS: BP 136/81; PULSE 77; RESP 16; O2SAT 93
[2022-12-27 00:03] LABS: Glucose Point of Care 454 mg/dL (70-110)
[2022-12-27 00:16] LABS: Troponin 5 2HR Delta 0.5 ABS# (0-10)
[2022-12-27] MEDS: insulin regular-human 100 units/1 mL 10 UNIT IVP (00:17)
[2022-12-27 00:53] VITALS: BP 132/81; PULSE 78; RESP 16; O2SAT 98
[2022-12-27 01:01] LABS: Glucose Point of Care 411 mg/dL (70-110)
[2022-12-27 01:03] VITALS: BP 132/81; PULSE 78; RESP 16; TEMP 36.5; O2SAT 98
[2022-12-28 03:14] LABS: Glucose Point of Care 580 mg/dL (70-110)
== END 2022-12-27 01:04 | disposition home or self-care (01) ==
PROVIDERS: Emergency Medicine; Nurse Practitioner Family; Emergency Provider Emergency Medicine; PCP Family Medicine
DX: E11.9 Type 2 diabetes mellitus without complications (principal); K80.20 Calculus of gallbladder without cholecystitis without obstruction; Z79.84 Long term (current) use of oral hypoglycemic drugs
CPT/HCPCS: 36415; 36416; 71046; 74177; 76700; 76705; 80053; 81003; 82962; 83690; 83880; 84478; 84484; 85025; 93005; 96361; 96374; 96375; 99285; J1815; J2060; J7030; J7120; Q9967

== ENCOUNTER → 2023-01-07 16:40 | Outpatient (BNVA) | payer SELFPAY | PROVIDERS: PCP Family Medicine; Visit Provider Family Medicine | DX: I10 Essential (primary) hypertension (principal); E11.9 Type 2 diabetes mellitus without complications | CPT/HCPCS: 80053; 80061; 85025 ==

== ENCOUNTER → 2023-12-17 15:23 | Outpatient (BNVA) | payer SELFPAY | PROVIDERS: PCP Family Medicine; Visit Provider Nurse Practitioner Family | DX: E11.9 Type 2 diabetes mellitus without complications (principal); J18.9 Pneumonia, unspecified organism | CPT/HCPCS: 71046 ==

== ENCOUNTER → 2024-02-17 11:55 | Outpatient (BNVA) | payer MEDICAID, SELFPAY | PROVIDERS: PCP Family Medicine; Visit Provider Nurse Practitioner Family | DX: Z01.818 Encounter for other preprocedural examination (principal) | CPT/HCPCS: 80053; 83036; 85025 ==

== ENCOUNTER → 2024-02-24 08:44 | Outpatient (BNVA) | payer MEDICAID, SELFPAY | PROVIDERS: PCP Family Medicine; Visit Provider Nurse Practitioner Family | DX: Z09 Encounter for follow-up examination after completed treatment for conditions other than malignant neoplasm (principal); J90 Pleural effusion, not elsewhere classified | CPT/HCPCS: 71046 ==

== ENCOUNTER → 2024-04-22 09:42 | Outpatient (BNVA) | payer MEDICAID, SELFPAY | PROVIDERS: PCP Nurse Practitioner Family; Visit Provider Nurse Practitioner Family | DX: I70.90 Unspecified atherosclerosis (principal); Q25.46 Tortuous aortic arch | CPT/HCPCS: 71046; 80053; 85025 ==

== ENCOUNTER → 2024-07-20 16:34 | Outpatient (BNVA) | payer MEDICAID, SELFPAY | PROVIDERS: PCP Nurse Practitioner Family; Visit Provider Nurse Practitioner Family | DX: K59.04 Chronic idiopathic constipation (principal) | CPT/HCPCS: 74018 ==

== ENCOUNTER → 2024-09-21 07:17 | Day surgery (SDC) | payer OTHER, MEDICAID, SELFPAY ==
[2024-09-21 07:31] VITALS: BP 99/64; RESP 18; TEMP 36.5
[2024-09-21] MEDS: sodium chloride 0.9% 500 ML 15 ML IV (08:02)
[2024-09-21 08:04] LABS: Glucose Point of Care 340 mg/dL (70-110)
--- NOTE | 2024-09-21 08:38 | PC.NURSE ---
Blood sugar 340. Physician ordered insulin along with labs/UA. When pt was informed of the extra labs , he frustrated and decided he wanted to leave. Refused meds, labs and procedure. IV was removed and cath. here to take pt home.Taken to exit doors via wheelchair.
== END ==
LOC: GILAB 07:20
PROVIDERS: PCP Nurse Practitioner Family; Visit Provider Student in an Organized Health Care Education/Training Program
PROC: 0DJ08ZZ Inspection of Upper Intestinal Tract, Via Natural or Artificial Opening Endoscopic (ICD-10-PCS; principal; 2024-09-21 08:15)
PROC: 0DJD8ZZ Inspection of Lower Intestinal Tract, Via Natural or Artificial Opening Endoscopic (ICD-10-PCS; CPT 45378; 2024-09-21 08:15)
DX: Z53.8 Procedure and treatment not carried out for other reasons (principal)
CPT/HCPCS: 36416; 82962; J7040

== ENCOUNTER → 2024-12-07 09:51 | Outpatient (BNVA) | payer OTHER, MEDICAID, SELFPAY | PROVIDERS: PCP Nurse Practitioner Family; Visit Provider Nurse Practitioner Family | DX: I10 Essential (primary) hypertension (principal); E11.9 Type 2 diabetes mellitus without complications; E55.9 Vitamin D deficiency, unspecified; N40.1 Benign prostatic hyperplasia with lower urinary tract symptoms; R39.14 Feeling of incomplete bladder emptying; Z79.4 Long term (current) use of insulin | CPT/HCPCS: 80053; 80061; 81003; 82306; 83036; 84443; 85025 ==